=== PATIENT | female | born 1965 | race Asian ===

== ENCOUNTER → 2021-05-21 | Outpatient (CLI) | payer OTHER ==
--- NOTE | 2021-05-21 16:48 | RAD ---
MG 2D BILAT SCREENING 05/21/2021 7:48 AM INDICATION: Asymptomatic screening mammogram. COMPARISON: 05/28/2018, 02/02/2016 TECHNIQUE: 2D CC and MLO projections were obtained of each breast. FINDINGS: Breast density: Category B: There are scattered areas of fibroglandular density. Right breast: There are no suspicious microcalcifications, masses or areas of architectural distortio n. Left breast: There are no suspicious microcalcifications, masses or areas of architectural distortion . Bilateral mammogram is compared to prior examinations appears unchanged. IMPRESSION: Negative bilateral mammogram. BI-RADS category: 1; Negative Recommendations: Recommend annual screening mammography in one year. Electronically signed by: Natividad Bazzi MD (05/21/2021 4:45 PM) [id number]
--- NOTE | 2021-05-21 17:37 | RAD ---
US PELVIS W/TV History: Reason: DYSPAREUNIA / Spl. Instructions: / History: Comparison: None Technique: Grayscale and color Doppler imaging of the pelvis was performed using transabdominal and t ransvaginal technique. Findings: The uterus measures 6.0 x 3.6 x 2.6 cm. Small fluid within the cervical canal. The endometrial stri pe measures 1 mm. Right ovary measures 1.4 x 1.7 x 1.4 cm. Normal Doppler flow to the right ovary. Left ovary not identified due to positioning and overlying structures. No free fluid. IMPRESSION: 1. Small nonspecific fluid within the cervical canal. 2. Left ovary not identified. Electronically signed by: Patrick Blue DO (05/21/2021 5:35 PM) [id number]
== END ==
LOC: US 07:17
PROVIDERS: ATTEND Specialist
DX: Z12.31 Encounter for screening mammogram for malignant neoplasm of breast (principal); N94.10 Unspecified dyspareunia
CPT/HCPCS: 76830; 76856; 77067

== ENCOUNTER → 2021-11-19 | Outpatient (CLI) | payer OTHER ==
--- NOTE | 2021-11-19 10:18 | RAD ---
EXAM: RENAL ULTRASOUND CLINICAL HISTORY: PROTEINURIA COMPARISON: None available. TECHNIQUE: Ultrasound examination of the bilateral kidneys and urinary bladder was performed. FINDINGS: The right kidney measures 9.3 x 4.2 x 4.0 cm. The left kidney measures 7.9 x 3.8 x 4.1 cm. Somewhat a trophic left kidney. No evidence of hydronephrosis. Echogenic appearing bilateral kidneys. Visualized IVC within normal limits of dimension. Urinary bladder is mildly distended. IMPRESSION: 1. Echogenic appearing bilateral kidneys likely chronic renal disease. 2. Somewhat atrophic left kidney. Electronically signed by: Martell cMclure MD (11/19/2021 10:15 AM) [id number]
== END ==
LOC: US 08:47
PROVIDERS: ATTEND Specialist
DX: N32.89 Other specified disorders of bladder (principal); R80.9 Proteinuria, unspecified
CPT/HCPCS: 76770